=== PATIENT | male | born 1990 ===

== ENCOUNTER 2020-11-07 13:36 | Emergency (ER) | payer SELFPAY ==
[~2020-11-07] VITALS: Ht 170.2 cm; Wt 90.0 kg
[2020-11-07 13:44] VITALS: BP 124/82
[2020-11-07 14:25] LABS: BASOPHILS % (AUTO) 1 % (0-1); EOSINOPHILS % (AUTO) 0 % (1-7); LYMPHOCYTES % (AUTO) 10 % (22-44); MEAN CORPUSCULAR HEMOGLOBIN 30.2 pg (27.5-34.5); MEAN CORPUSCULAR HGB CONC 34.2 g/dL (33.2-36.2); MEAN PLATELET VOLUME 8.5 fL (7.4-10.4); MONOCYTES % (AUTO) 6 % (2-9); NEUTROPHILS % (AUTO) 83 % (42-75); PLATELET COUNT 293 x10^3/uL (130-400); RED CELL DISTRIBUTION WIDTH 13.3 % (9.4-14.8)
[2020-11-07 14:27] LABS: ANION GAP 9 mmol/L (5-15); CALCIUM 8.9 mg/dL (8.5-10.1); CHLORIDE 106 mmol/L (98-107); CREATININE 1.02 mg/dL (0.7-1.3)
[2020-11-07 14:28] LABS: ALANINE AMINOTRANSFERASE 29 U/L (12-78); ALBUMIN 4.2 g/dL (3.4-5.0)
[2020-11-07 14:30] LABS: ALKALINE PHOSPHATASE 101 U/L (45-117); TOTAL PROTEIN 7.8 g/dL (6.4-8.2)
[2020-11-07 14:36] LABS: MD NO
--- NOTE | 2020-11-07 15:26 | NUR ---
NEURO EXAM INMPROVED. NOW MORE ALERT/PLEASANT. "I THINK ITS STRESS AND ETOH.I NEED TO GO HOME THOUGH." ERP MADE AWARE OF PATIENT REQUESTING DC. ERP AGRABLE BUT NEEDS TIME TO COMPLETE CHART
--- NOTE | 2020-11-07 16:01 | NUR ---
ROAD TEST/PO CHALLNG UNREMARKABLE. NO DRIVING. PROVIDED WITH LIST OF PROVIDERS IN TOWN FOR F/U
--- NOTE | 2020-11-07 16:03 | NUR ---
PATIENT LEFT AMA-PROVIDER AGREEABLE
== END 2020-11-07 16:06 | disposition home or self-care (01) ==
LOC: ED 16:00
DX: R56.9 Unspecified convulsions (principal); R55 Syncope and collapse; R51.9 Headache, unspecified; I10 Essential (primary) hypertension
CPT/HCPCS: 36415; 70450; 80053; 85025; 93005; 99285